=== PATIENT | female | born 1970 | race Caucasian/White ===

== ENCOUNTER 2024-06-17 17:46 | Inpatient (IN) | payer BC ==
[~2024-06-17] VITALS: Ht 152.4 cm; Wt 89.4 kg
[2024-06-17] MEDS: NALOXONE HCL 0.4MG/ML 1ML VIAL IV ONE (18:22)
[2024-06-17] MEDS: SODIUM CHLORIDE 0.9% 1,000 ML IV ONE (18:22)
[2024-06-17 18:24] LABS: CHLORIDE 108 mEq/L (98-107); POTASSIUM 3.4 mEq/L (3.5-5.1); SODIUM 144 mEq/L (136-145)
[2024-06-17 18:25] LABS: CALCIUM 9.9 mg/dL (8.7-10.4); CARBON DIOXIDE 15 mEq/L (21-32)
[2024-06-17 18:29] LABS: CLARITY URINE CLOUDY (CLEAR); COLOR URINE DARK YELLOW (YELLOW); GLUCOSE URINE NEGATIVE (NEGATIVE); KETONES URINE NEGATIVE (NEGATIVE); LEUKOCYTE ESTERASE URINE TRACE (NEGATIVE); NITRITE URINE POSITIVE (NEGATIVE); OCCULT BLOOD URINE 1+ (NEGATIVE); PROTEIN URINE 2+ (NEGATIVE); SPECIFIC GRAVITY URINE 1.023 (1.005-1.030)
[2024-06-17 18:30] LABS: CREATININE 1.2 mg/dL (0.6-1.0); GLUCOSE 229 mg/dL (70-105); UREA NITROGEN BLOOD 18 mg/dL (9-23)
[2024-06-17 18:31] LABS: ETHANOL BLOOD < 10 mg/dL (<10)
[2024-06-17 18:32] LABS: CREATINE KINASE 551 IU/L (34-145)
[2024-06-17 18:33] LABS: AMMONIA 123 uMol/L (<32)
[2024-06-17 18:38] LABS: *AMPHETAMINES SCREEN URINE NEGATIVE (NEGATIVE); *BARBITURATES SCREEN URINE NEGATIVE (NEGATIVE); *BENZODIAZEPINES SCREEN URINE NEGATIVE (NEGATIVE); *COCAINE SCREEN URINE NEGATIVE (NEGATIVE); CANNABINOID URINE SCREEN NEGATIVE (NEGATIVE); ECSTASY MDMA SCREEN URINE NEGATIVE (NEGATIVE); METHADONE URINE SCREEN Pos (NEGATIVE); OPIATES URINE SCREEN PRESUMPTIVE POSITIVE (NEGATIVE); PHENCYCLIDINE URINE SCREEN NEGATIVE (NEGATIVE)
[2024-06-17 18:39] LABS: HEMATOCRIT. 26.1 % (36.0-48.0); HEMOGLOBIN. 8.9 g/dL (12.0-16.0); MEAN CORPUSCULAR HEMOGLOBIN 33.4 pg (28.0-32.0); MEAN CORPUSCULAR HGB CONC 34.2 g/dL (31.0-37.0); MEAN CORPUSCULAR VOLUME 97.7 fL (81.0-99.0); MEAN PLATELET VOLUME 10.5 fl (7.4-10.4); RED BLOOD CELL COUNT 2.67 mill/uL (4.2-5.4); RED CELL DISTRIBUTION WIDTH 20.9 % (11.6-14.6); WHITE BLOOD COUNT 3.7 x1000/uL (4.5-11.0)
[2024-06-17 18:49] LABS: DIFFERENTIAL COMMENT 1
[2024-06-17 18:53] LABS: PLATELET 14 x1000/uL (130-400)
[2024-06-17] MEDS: CEFTRIAXONE 1GM/50ML 50 ML IV ONE (19:01)
[2024-06-17 19:05] LABS: BACTERIA URINE 4+; SQUAMOUS EPITHELIAL CELL URINE 1+ /lpf (RARE/1+); WBC URINE 0-2 /hpf (0-2)
[2024-06-17 19:06] LABS: HYALINE CASTS URINE 0-5 /lpf
[2024-06-17 19:07] LABS: MUCUS URINE 1+ /lpf (< = 2+)
[2024-06-17] MEDS: LACTULOSE 20G/30ML UDC PO ONE (19:10)
[2024-06-17 21:32] LABS: BG BASE EXCESS -2.1 mmol/L (-2.0-3.0); BG CARBOXYHEMOGLOBIN 0.3 % (0.5-1.5); BG DEOXYHEMOGLOBIN 12.2 % (0.0-5.0); BG FRACTION INSPIRED OXYGEN 21; BG HCO3 ACT 20.2 mmol/L (21.0-28.0); BG METHEMOGLOBIN 0.4 % (0.5-1.5); BG OXYGEN SATURATION 87.7 % (94.0-98.0); BG OXYHEMOGLOBIN 87.1 % (94.0-98.0); BG PCO2 27.7 mmHg (32.0-45.0); BG PO2 56.9 mmHg (83.0-108.0); BG SAMPLE SITE RIGHT RADIAL; BG TOTAL HEMOGLOBIN 12.4 g/dL (12.0-16.0); BG VENT MODE ROOM AIR
[2024-06-17 21:36] LABS: NUCLEATED RED BLOOD CELLS 2 /100 WBC
[2024-06-17 21:37] LABS: ANISOCYTOSIS 2+; PLATELET ESTIMATE MARKEDLY DECREASED
[2024-06-17 22:17] LABS: TRIGLYCERIDE 130 mg/dL (0-150)
[2024-06-17 22:18] LABS: ALANINE AMINOTRANSFERASE 23 IU/L (10-49); LACTIC ACID 2.7 mmol/L (0.4-2.0); LDL CHOLESTEROL 94 mg/dL (5-100)
[2024-06-17 22:19] LABS: ALBUMIN 3.5 g/dL (3.2-4.8); ASPARTATE AMINOTRANSFERASE 122 IU/L (<34); BILIRUBIN DIRECT 1.7 mg/dL (<=3.0); BILIRUBIN TOTAL 2.8 mg/dL (0.1-1.0); CHOLESTEROL 145 mg/dL (<200); HDL CHOLESTEROL 24 mg/dL (>65); PROTEIN TOTAL 5.5 g/dL (6.0-8.3)
[2024-06-17 22:21] LABS: THYROID STIMULATING HORMONE 7.11 uIU/mL (0.55-4.78)
[2024-06-17] MEDS: SODIUM CHLORIDE 0.9% 1,000 ML IV SCH (22:32)
[2024-06-17] MEDS: LACTULOSE ENEMA 1,000ML BOTTLE PR NR (22:33)
[2024-06-17] MEDS: RIFAXIMIN 550 MG TABLET PO SCH (22:33)
[2024-06-17] MEDS: LACTULOSE 20G/30ML UDC PO SCH (22:34)
[2024-06-18] MEDS ORDERED: IPRATROPIUM/ALBUTEROL 0.5-3(2.5)MG/3ML NEB HHN PRN (12:45)
[2024-06-18] MEDS ORDERED: CLONIDINE 0.1MG TABLET PO PRN (12:45)
[2024-06-18] MEDS ORDERED: ACETAMINOPHEN 325MG TABLET PO PRN (12:45)
[2024-06-18] MEDS ORDERED: DOCUSATE SODIUM 100MG CAPSULE PO PRN (12:45)
[2024-06-18] MEDS ORDERED: ONDANSETRON HCL 4MG/2ML INJ IV PRN (12:45)
[2024-06-18] MEDS ORDERED: PIPERACILLIN/TAZO 3.375G/50ML 50 ML IV SCH (14:00)
[2024-06-18] MEDS: CEFEPIME 2GM/100ML 100 ML IV SCH ×2 (14:11→22:14)
[2024-06-18] MEDS: VANCOMYCIN 2,000 MG in DEXT 5% WATER 500 ML IV SCH (14:21)
[2024-06-18 17:35] VITALS: BP 120/70; PULSE 81; RESP 18; TEMP 36.44736; O2SAT 99
[2024-06-18 18:00] VITALS: BP 120/70; PULSE 81; RESP 18; TEMP 36.4736
[2024-06-18 20:00] VITALS: BP 109/67; PULSE 68; RESP 18; TEMP 36.44736; O2SAT 91
[2024-06-18] MEDS: ACETAMINOPHEN 325MG TABLET PO PRN (20:04)
[2024-06-18] MEDS ORDERED: LOSA50TA41 PO (20:50)
[2024-06-18 21:20] LABS: HEMATOCRIT. 22.4 % (36.0-48.0); HEMOGLOBIN. 7.8 g/dL (12.0-16.0); MEAN CORPUSCULAR HEMOGLOBIN 33.3 pg (28.0-32.0); MEAN CORPUSCULAR HGB CONC 34.6 g/dL (31.0-37.0); MEAN CORPUSCULAR VOLUME 96.2 fL (81.0-99.0); MEAN PLATELET VOLUME 8.9 fl (7.4-10.4); RED BLOOD CELL COUNT 2.33 mill/uL (4.2-5.4); RED CELL DISTRIBUTION WIDTH 21.3 % (11.6-14.6); WHITE BLOOD COUNT 3.4 x1000/uL (4.5-11.0)
[2024-06-18 21:22] LABS: DIFFERENTIAL COMMENT 1
[2024-06-18 21:25] LABS: CHLORIDE 113 mEq/L (98-107); POTASSIUM 3.1 mEq/L (3.5-5.1); SODIUM 146 mEq/L (136-145)
[2024-06-18 21:26] LABS: CALCIUM 8.6 mg/dL (8.7-10.4); CARBON DIOXIDE 23 mEq/L (21-32)
[2024-06-18 21:31] LABS: CREATININE 0.7 mg/dL (0.6-1.0); GLUCOSE 134 mg/dL (70-105); UREA NITROGEN BLOOD 17 mg/dL (9-23)
[2024-06-18 21:32] LABS: AMMONIA 51 uMol/L (<32)
[2024-06-18 21:33] LABS: ALANINE AMINOTRANSFERASE 38 IU/L (10-49); ALBUMIN 3.2 g/dL (3.2-4.8); ASPARTATE AMINOTRANSFERASE 219 IU/L (<34); PHOSPHORUS 3.7 mg/dL (2.5-4.9)
[2024-06-18 21:34] LABS: BILIRUBIN TOTAL 2.3 mg/dL (0.1-1.0); PROTEIN TOTAL 5.1 g/dL (6.0-8.3)
[2024-06-18 21:35] LABS: PLATELET 18 x1000/uL (130-400); T4 FREE 0.99 ng/dL (0.89-1.76)
[2024-06-18 21:40] LABS: TROPONIN I HIGH SENSITIVITY 9633 ng/L (3.0-34)
[2024-06-18 21:49] LABS: CREATINE KINASE 9099 IU/L (34-145)
[2024-06-18 22:06] LABS: PLATELET ESTIMATE MARKEDLY DECREASED
[2024-06-18 22:07] LABS: ANISOCYTOSIS 2+
[2024-06-18 22:08] LABS: NUCLEATED RED BLOOD CELLS 2 /100 WBC
[2024-06-18 22:09] LABS: OVALOCYTES 1+
[2024-06-19] MEDS ORDERED: METH-817 PO (04:34)
[2024-06-19] MEDS ORDERED: LEVO125T8 PO (04:42)
[2024-06-19] MEDS ORDERED: OLAN2.5T29 PO (04:42)
[2024-06-19] MEDS ORDERED: PANT40TA51 PO (04:42)
[2024-06-19] MEDS ORDERED: GABA-532 PO (04:42)
[2024-06-19] MEDS ORDERED: *PATIENT'S OWN MEDICATION STORAGE XX SCH (05:30)
[2024-06-19 07:46] LABS: CARBON DIOXIDE 24 mEq/L (21-32); CHLORIDE 113 mEq/L (98-107); POTASSIUM 3.1 mEq/L (3.5-5.1); SODIUM 146 mEq/L (136-145)
[2024-06-19 07:47] LABS: CALCIUM 8.6 mg/dL (8.7-10.4)
[2024-06-19 07:52] LABS: CREATININE 0.7 mg/dL (0.6-1.0); GLUCOSE 133 mg/dL (70-105); UREA NITROGEN BLOOD 16 mg/dL (9-23)
[2024-06-19 07:53] LABS: ALANINE AMINOTRANSFERASE 41 IU/L (10-49); ALBUMIN 3.2 g/dL (3.2-4.8)
[2024-06-19 07:54] LABS: ASPARTATE AMINOTRANSFERASE 221 IU/L (<34); BILIRUBIN TOTAL 2.4 mg/dL (0.1-1.0); PROTEIN TOTAL 5.1 g/dL (6.0-8.3)
[2024-06-19 08:00] VITALS: BP 121/73; PULSE 87; RESP 18; TEMP 36.89184; O2SAT 96
[2024-06-19 08:02] LABS: HEMATOCRIT. 22.2 % (36.0-48.0); HEMOGLOBIN. 7.6 g/dL (12.0-16.0); MEAN CORPUSCULAR HEMOGLOBIN 33.4 pg (28.0-32.0); MEAN CORPUSCULAR HGB CONC 34.5 g/dL (31.0-37.0); MEAN CORPUSCULAR VOLUME 96.7 fL (81.0-99.0); MEAN PLATELET VOLUME 9.4 fl (7.4-10.4); RED BLOOD CELL COUNT 2.29 mill/uL (4.2-5.4); RED CELL DISTRIBUTION WIDTH 20.8 % (11.6-14.6)
[2024-06-19 09:05] LABS: DIFFERENTIAL COMMENT 1
[2024-06-19 09:09] LABS: PLATELET 14 x1000/uL (130-400)
[2024-06-19 12:00] VITALS: BP 128/78; PULSE 88; RESP 18; TEMP 36.50292; O2SAT 97
[2024-06-19] MEDS: KCL 20MEQ/100ML PREMIX 100 ML IV SCH (12:54)
[2024-06-19] MEDS: VANCOMYCIN 1.25GM PMX (XELLIA) 250 ML IV SCH (14:08)
[2024-06-19] MEDS: SODIUM CHLORIDE 0.45% 1,000 ML IV SCH (14:11)
[2024-06-19 16:00] VITALS: BP 139/94; PULSE 93; RESP 18; TEMP 36.50292; O2SAT 97
[2024-06-19] MEDS: ONDANSETRON HCL 4MG/2ML INJ IV PRN (16:35)
[2024-06-19 18:10] LABS: ANISOCYTOSIS 2+; NUCLEATED RED BLOOD CELLS 3 /100 WBC; PLATELET ESTIMATE MARKEDLY DECREASED
[2024-06-19 20:00] VITALS: BP 117/81; PULSE 96; RESP 19; TEMP 36.61404; O2SAT 98
[2024-06-20 04:00] VITALS: BP 138/75; PULSE 90; RESP 18; TEMP 36.3918; O2SAT 98
[2024-06-20 08:00] VITALS: BP 111/70; PULSE 90; RESP 18; TEMP 35.0028; O2SAT 86
[2024-06-20] MEDS ORDERED: LIDOCAINE HCL 1% 10 MG/ML 10ML VIAL ONE (10:50)
[2024-06-20 12:00] VITALS: BP 125/84; PULSE 93; RESP 18; TEMP 35.72508; O2SAT 92
[2024-06-20 16:00] VITALS: BP 124/71; PULSE 93; RESP 18; TEMP 36.05844; O2SAT 96
[2024-06-20] MEDS: CEFAZOLIN 2GM/100ML 100 ML IV SCH (18:30)
[2024-06-20 20:00] VITALS: BP 130/81; PULSE 99; RESP 17; TEMP 36.50292; O2SAT 99
[2024-06-20 23:49] LABS: HEMATOCRIT. 21.7 % (36.0-48.0); HEMOGLOBIN. 7.4 g/dL (12.0-16.0); MEAN CORPUSCULAR HEMOGLOBIN 33.2 pg (28.0-32.0); MEAN CORPUSCULAR HGB CONC 34.1 g/dL (31.0-37.0); MEAN CORPUSCULAR VOLUME 97.3 fL (81.0-99.0); MEAN PLATELET VOLUME 9.3 fl (7.4-10.4); RED BLOOD CELL COUNT 2.23 mill/uL (4.2-5.4); WHITE BLOOD COUNT 3.5 x1000/uL (4.5-11.0)
[2024-06-20 23:55] LABS: CHLORIDE 109 mEq/L (98-107); POTASSIUM 3.1 mEq/L (3.5-5.1)
[2024-06-20 23:56] LABS: CALCIUM 7.6 mg/dL (8.7-10.4); CARBON DIOXIDE 18 mEq/L (21-32); DIFFERENTIAL COMMENT 1; PLATELET 13 x1000/uL (130-400)
[2024-06-21] VITALS: BP 103/46; PULSE 94; RESP 18; TEMP 36.55848; O2SAT 99
[2024-06-21 00:01] LABS: CREATININE 0.5 mg/dL (0.6-1.0); GLUCOSE 125 mg/dL (70-105); UREA NITROGEN BLOOD 9 mg/dL (9-23)
[2024-06-21 00:03] LABS: ALANINE AMINOTRANSFERASE 36 IU/L (10-49); ALBUMIN 3.1 g/dL (3.2-4.8); ASPARTATE AMINOTRANSFERASE 144 IU/L (<34); BILIRUBIN DIRECT 1.1 mg/dL (<=3.0); PHOSPHORUS 3.1 mg/dL (2.5-4.9)
[2024-06-21 00:04] LABS: BILIRUBIN TOTAL 1.9 mg/dL (0.1-1.0); PROTEIN TOTAL 4.8 g/dL (6.0-8.3)
[2024-06-21 00:13] LABS: CREATINE KINASE 4229 IU/L (34-145); LACTATE DEHYDROGENASE 1595 IU/L (120-246)
[2024-06-21 00:14] LABS: CREATINE KINASE 4095 IU/L (34-145)
[2024-06-21 00:35] LABS: SODIUM 136 mEq/L (136-145)
[2024-06-21 03:50] LABS: PLATELET ESTIMATE DECREASED
[2024-06-21 04:00] VITALS: BP 137/82; PULSE 95; RESP 18; TEMP 36.55848; O2SAT 99
[2024-06-21 06:26] LABS: CHLORIDE 112 mEq/L (98-107); HEMATOCRIT. 22.7 % (36.0-48.0); HEMOGLOBIN. 7.9 g/dL (12.0-16.0); MEAN CORPUSCULAR HEMOGLOBIN 33.9 pg (28.0-32.0); MEAN CORPUSCULAR HGB CONC 34.7 g/dL (31.0-37.0); MEAN CORPUSCULAR VOLUME 97.6 fL (81.0-99.0); MEAN PLATELET VOLUME 8.7 fl (7.4-10.4); POTASSIUM 3.3 mEq/L (3.5-5.1); RED BLOOD CELL COUNT 2.32 mill/uL (4.2-5.4); RED CELL DISTRIBUTION WIDTH 20.6 % (11.6-14.6); SODIUM 142 mEq/L (136-145); WHITE BLOOD COUNT 4.3 x1000/uL (4.5-11.0)
[2024-06-21 06:27] LABS: CALCIUM 8.6 mg/dL (8.7-10.4); CARBON DIOXIDE 18 mEq/L (21-32)
[2024-06-21 06:29] LABS: UREA NITROGEN BLOOD 9 mg/dL (9-23)
[2024-06-21 06:32] LABS: CREATININE 0.6 mg/dL (0.6-1.0); GLUCOSE 120 mg/dL (70-105)
[2024-06-21 06:34] LABS: ALANINE AMINOTRANSFERASE 37 IU/L (10-49); ALBUMIN 3.3 g/dL (3.2-4.8); ASPARTATE AMINOTRANSFERASE 147 IU/L (<34); BILIRUBIN DIRECT 1.2 mg/dL (<=3.0); BILIRUBIN TOTAL 2.1 mg/dL (0.1-1.0); PHOSPHORUS 3.3 mg/dL (2.5-4.9); PROTEIN TOTAL 5.3 g/dL (6.0-8.3)
[2024-06-21 06:49] LABS: DIFFERENTIAL COMMENT 1
[2024-06-21 08:00] VITALS: BP 123/72; PULSE 70; RESP 17; TEMP 35.50284; O2SAT 95
[2024-06-21 12:00] VITALS: BP 139/96; PULSE 96; RESP 17; TEMP 35.0028; O2SAT 95
[2024-06-21] MEDS ORDERED: NALOXONE HCL 0.4MG/ML VIAL IV PRN (12:30)
[2024-06-21] MEDS: POTASSIUM CHLORIDE 20MEQ TABLET SR PO NR ×2 (13:47→18:30)
[2024-06-21] MEDS: MAGNESIUM 2 G PREMIX 50 ML IV NR (15:34)
[2024-06-21] MEDS: METHADONE HCL 5MG TABLET PO SCH (15:35)
[2024-06-21 16:45] LABS: ANISOCYTOSIS 2+; NUCLEATED RED BLOOD CELLS 5 /100 WBC; PLATELET ESTIMATE MARKEDLY DECREASED
[2024-06-21 16:46] LABS: PLATELET 15 x1000/uL (130-400)
[2024-06-21 20:00] VITALS: BP 159/93; PULSE 111; RESP 20; TEMP 36.9474; O2SAT 97
[2024-06-22] VITALS: BP 129/72; PULSE 104; RESP 19; TEMP 36.89184; O2SAT 97
[2024-06-22 04:00] VITALS: BP 128/73; PULSE 95; RESP 20; TEMP 36.33624; O2SAT 97
[2024-06-22 08:00] VITALS: BP 122/77; PULSE 70; RESP 20; TEMP 36.6696; O2SAT 99
[2024-06-22 12:00] VITALS: BP 123/86; PULSE 81; RESP 20; TEMP 36.6696; O2SAT 100
[2024-06-22] MEDS: POTASSIUM CHLORIDE 20MEQ TABLET SR PO NR ×2 (14:08→20:10)
[2024-06-22 16:00] VITALS: BP 152/84; PULSE 108; RESP 18; TEMP 35.89176; O2SAT 97
[2024-06-22 18:51] LABS: DIFFERENTIAL COMMENT 1; HEMOGLOBIN. 7.1 g/dL (12.0-16.0); MEAN CORPUSCULAR HEMOGLOBIN 33.3 pg (28.0-32.0); MEAN CORPUSCULAR HGB CONC 34.6 g/dL (31.0-37.0); MEAN CORPUSCULAR VOLUME 96.2 fL (81.0-99.0); RED BLOOD CELL COUNT 2.14 mill/uL (4.2-5.4); RED CELL DISTRIBUTION WIDTH 20.6 % (11.6-14.6); WHITE BLOOD COUNT 4.3 x1000/uL (4.5-11.0)
[2024-06-22 18:57] LABS: HEMATOCRIT. 20.6 % (36.0-48.0)
[2024-06-22 18:58] LABS: PLATELET 9 x1000/uL (130-400)
[2024-06-22 19:00] LABS: CHLORIDE 109 mEq/L (98-107); POTASSIUM 2.9 mEq/L (3.5-5.1); SODIUM 139 mEq/L (136-145)
[2024-06-22 19:01] LABS: CALCIUM 8.4 mg/dL (8.7-10.4); CARBON DIOXIDE 22 mEq/L (21-32)
[2024-06-22 19:06] LABS: CREATININE 0.7 mg/dL (0.6-1.0); GLUCOSE 228 mg/dL (70-105); UREA NITROGEN BLOOD 12 mg/dL (9-23)
[2024-06-22 19:19] LABS: CREATINE KINASE 1572 IU/L (34-145)
[2024-06-22 20:00] VITALS: BP 120/71; PULSE 101; RESP 18; TEMP 36.61404; O2SAT 99
[2024-06-22 23:35] LABS: ANISOCYTOSIS 2+; PLATELET ESTIMATE MARKEDLY DECREASED
[2024-06-23] VITALS (13 sets, daily range): BP systolic 91–144; BP diastolic 53–90; PULSE 82–108; RESP 17–20; TEMP 35.61396–37.11408; O2SAT 97–100
[2024-06-23 08:52] LABS: MEAN CORPUSCULAR HGB CONC 34.1 g/dL (31.0-37.0); MEAN CORPUSCULAR VOLUME 96.9 fL (81.0-99.0); MEAN PLATELET VOLUME 8.5 fl (7.4-10.4); RED BLOOD CELL COUNT 2.08 mill/uL (4.2-5.4); RED CELL DISTRIBUTION WIDTH 20.9 % (11.6-14.6); WHITE BLOOD COUNT 4.9 x1000/uL (4.5-11.0)
[2024-06-23 08:55] LABS: DIFFERENTIAL COMMENT 1
[2024-06-23 08:57] LABS: CHLORIDE 109 mEq/L (98-107); POTASSIUM 3.2 mEq/L (3.5-5.1); SODIUM 139 mEq/L (136-145)
[2024-06-23 08:58] LABS: CALCIUM 8.1 mg/dL (8.7-10.4); CARBON DIOXIDE 22 mEq/L (21-32)
[2024-06-23 09:02] LABS: HEMATOCRIT. 20.2 % (36.0-48.0); HEMOGLOBIN. 6.9 g/dL (12.0-16.0)
[2024-06-23 09:03] LABS: CREATININE 0.6 mg/dL (0.6-1.0); GLUCOSE 136 mg/dL (70-105); PLATELET 25 x1000/uL (130-400); UREA NITROGEN BLOOD 12 mg/dL (9-23)
[2024-06-23 09:05] LABS: CREATINE KINASE 1125 IU/L (34-145)
[2024-06-23 11:11] LABS: ATYPICAL LYMPHOCYTES 2; NUCLEATED RED BLOOD CELLS 1 /100 WBC
[2024-06-23 11:13] LABS: ANISOCYTOSIS 2+; PLATELET ESTIMATE MARKEDLY DECREASED
[2024-06-23 11:58] LABS: AMMONIA 62 uMol/L (<32)
[2024-06-23] MEDS: POTASSIUM CHLORIDE 20MEQ TABLET SR PO NR (13:56)
[2024-06-23 14:31] LABS: CREATINE KINASE 1110 IU/L (34-145)
== END 2024-06-24 07:13 | disposition short-term general hospital (02) | DRG 871 ==
LOC: ER 17:46 → MICUSO 20:18 → EDBEDREQTM 20:33 → EDBEDREQ 20:33 → 5WST 06-18 14:22 → 8WST 06-18 17:23
PROVIDERS: ADMIT Family Medicine Adult Medicine; ATTEND Family Medicine Adult Medicine
PROC: 02HV33Z Insertion of Infusion Device into Superior Vena Cava, Percutaneous Approach (ICD-10-PCS; 2024-06-20)
PROC: B548ZZA Ultrasonography of Superior Vena Cava, Guidance (ICD-10-PCS; 2024-06-20)
PROC: 30233N1 Transfusion of Nonautologous Red Blood Cells into Peripheral Vein, Percutaneous Approach (ICD-10-PCS; principal; 2024-06-23)
DX: A41.01 Sepsis due to Methicillin susceptible Staphylococcus aureus (principal); G92.8 Other toxic encephalopathy; I21.A1 Myocardial infarction type 2; K76.6 Portal hypertension; E87.20 Acidosis, unspecified; M62.82 Rhabdomyolysis; D61.818 Other pancytopenia; N39.0 Urinary tract infection, site not specified; E87.0 Hyperosmolality and hypernatremia; E11.9 Type 2 diabetes mellitus without complications; Z68.38 Body mass index [BMI] 38.0-38.9, adult; E83.42 Hypomagnesemia; R65.20 Severe sepsis without septic shock; E66.01 Morbid (severe) obesity due to excess calories; K74.60 Unspecified cirrhosis of liver; Z20.822 Contact with and (suspected) exposure to COVID-19; E87.6 Hypokalemia; E03.9 Hypothyroidism, unspecified; F11.90 Opioid use, unspecified, uncomplicated; I50.9 Heart failure, unspecified; I27.20 Pulmonary hypertension, unspecified; I11.0 Hypertensive heart disease with heart failure; I25.2 Old myocardial infarction; Z82.49 Family history of ischemic heart disease and other diseases of the circulatory system; Z98.2 Presence of cerebrospinal fluid drainage device
CPT/HCPCS: 36415; 36573; 36600; 71045; 76700; 80048; 80053; 80061; 80076; 80202; 80305; 80320; 81003; 82140; 82375; 82550; 82805; 82962; 83036; 83605; 83615; 83735; 84100; 84145; 84439; 84443; 84481; 84484; 85025; 85044; 85379; 86850; 86900; 86920; 87077; 87186; 87426; 93005; 93306; 99291; C1725; J0690; J0692; J0696; J2310; J2405; J3370; J3475; J3480; J3490; J7030; J7060; P9016; P9034; G0480